=== PATIENT | male | born 1955 | race Caucasian/White ===

== ENCOUNTER 2022-05-10 10:10 | Emergency (ER) | payer MEDICARE, BC ==
[~2022-05-10] VITALS: Ht 180.3 cm; Wt 84.8 kg
[2022-05-10] MEDS ORDERED: EPINEPHRINE 1 MG/1 ML AMP ONE (10:28)
[2022-05-10] MEDS ORDERED: diphenhydrAMINE 50 MG/1 ML VIAL IV ONE (10:30)
[2022-05-10] MEDS ORDERED: methylPREDNISolone SOD SUCC 125 MG/2 ML VIAL IV ONE (10:30)
[2022-05-10] MEDS ORDERED: EPINEPHRINE 1 MG/1 ML AMP SQ ONE (10:30)
[2022-05-10] MEDS ORDERED: IV NORMAL SALINE 1000 ML BAG IV ONE (10:30)
[2022-05-10] MEDS ORDERED: FAMOTIDINE. 20 MG/2 ML VIAL IV ONE ×2 (10:30→10:35)
[2022-05-10] MEDS ORDERED: methylPREDNISolone SOD SUCC 125 MG/2 ML VIAL ONE (10:34)
[2022-05-10] MEDS ORDERED: diphenhydrAMINE 50 MG/1 ML VIAL ONE (10:34)
--- NOTE | 2022-05-10 11:05 | NUR ---
Redness and swelling on the pt's face decreased. Pt denies discomfort and SOB.
[2022-05-10] MEDS ORDERED: PRED20TA PO ×2 (11:33→12:34)
[2022-05-10] MEDS ORDERED: EPIN0.3P3 IM ×2 (11:33→12:34)
[2022-05-10] MEDS ORDERED: FAMO-132 PO ×2 (11:33→12:34)
[2022-05-10] MEDS ORDERED: DIPH25CA83 PO ×2 (11:33→12:34)
[2022-05-10 13:08] VITALS: BP 150/68
--- NOTE | 2022-05-10 13:08 | NUR ---
Patient discharged to home in stable condition. Written and verbal after care instructions given. Patient verbalizes understanding of instructions. Stressed follow up or return to ER for worsening s/s.
== END 2022-05-10 13:09 | disposition home or self-care (01) ==
LOC: ER 10:10
DX: T78.2XXA Anaphylactic shock, unspecified, initial encounter (principal); T63.441A Toxic effect of venom of bees, accidental (unintentional), initial encounter; R03.0 Elevated blood-pressure reading, without diagnosis of hypertension
CPT/HCPCS: 99291; 96374; 96375; 96361; 96372; J1200; J0171; J3490; J2930; J7040; A4663

== ENCOUNTER 2022-05-18 15:15 | Emergency (ER) | payer MEDICARE, BC ==
[~2022-05-18] VITALS: Ht 180.3 cm; Wt 84.8 kg
[~2022-05-18 15:15] MED LIST: DIPH25CA83 PO; EPIN0.3P3 IM; FAMO-132 PO; PRED20TA PO
--- NOTE | 2022-05-18 16:46 | NUR ---
PT SEEN AND EVALUATED BY DR BRAY. US DONE AT BEDSIDE PER MD ORDER.
[2022-05-18 17:06] LABS: HEMATOCRIT 50.1 % (36.7-47.1); MEAN CORPUSCULAR HEMOGLOBIN 30.7 uug (23.8-33.4); MEAN CORPUSCULAR VOLUME 92.9 fL (73.0-96.2); PLATELET COUNT (AUTO) 94 K/uL (152-348)
[2022-05-18 17:18] LABS: CREATININE 1.3 mg/dL (0.6-1.3); POTASSIUM 4.5 mmol/L (3.5-5.1)
[2022-05-18 17:30] LABS: BILIRUBIN,TOTAL 0.6 mg/dL (0.2-1.0); TOTAL PROTEIN, SERUM 6.9 g/dL (6.4-8.2)
--- NOTE | 2022-05-18 19:07 | NUR ---
Poly Operator assumes care: Patient is AOx4, for discharge to home now. Patient discharged to home in stable condition and steady gait. Written and verbal after care instructions given to patient. Patient verbalized understanding and compliance of instructions. Stressed follow up with primary doctor or return to ER for worsening s/s. Copies of all the tests results were given to patient.
== END 2022-05-18 19:07 | disposition home or self-care (01) ==
LOC: ER 15:15
DX: I82.611 Acute embolism and thrombosis of superficial veins of right upper extremity (principal); Z87.892 Personal history of anaphylaxis; Z91.030 Bee allergy status; I10 Essential (primary) hypertension
CPT/HCPCS: 36415; 85025; 85610; A4663